=== PATIENT | female | born 2000 ===

== ENCOUNTER 2021-08-22 04:45 | Emergency (ER) ==
[2021-08-22] MEDS ORDERED: Ketorolac Tromethamine 30 MG/ML VIAL ONE (05:34)
[2021-08-22] MEDS ORDERED: Metoclopramide 10 MG/10 ML UDCUP ONE (05:34)
[2021-08-22] MEDS ORDERED: diphenhydrAMINE 50 MG/ML VIAL ONE (05:34)
[2021-08-22] MEDS ORDERED: Metoclopramide HCl 10 MG/2 ML VIAL ONE (05:35)
== END 2021-08-22 06:33 | disposition home or self-care (01) ==
LOC: ERS 04:45
DX: R51.9 Headache, unspecified (principal)
CPT/HCPCS: 96374; 96375; J1200; J1885; J2765

== ENCOUNTER 2021-11-12 21:27 | Emergency (ER) ==
[2021-11-12] MEDS ORDERED: Ketorolac Tromethamine 30 MG/ML VIAL ONE (22:51)
[2021-11-12] MEDS ORDERED: Metoclopramide HCl 10 MG/2 ML VIAL ONE (22:51)
[2021-11-12] MEDS ORDERED: diphenhydrAMINE 50 MG/ML VIAL ONE (22:51)
== END 2021-11-13 00:48 | disposition home or self-care (01) ==
LOC: ERS 21:27
DX: G43.909 Migraine, unspecified, not intractable, without status migrainosus (principal)
CPT/HCPCS: 96374; 96375; J1200; J1885; J2765